=== PATIENT | male | born 1995 | race Caucasian/White ===

== ENCOUNTER 2020-06-02 10:34 | Outpatient (REF) | payer MEDICARE, MEDICAID, SELFPAY | END 2020-06-02 10:35 | disposition home or self-care (01) | LOC: HO.LAB 10:34 | PROVIDERS: Visit Provider Internal Medicine | DX: Z20.822 Contact with and (suspected) exposure to COVID-19 (principal) | CPT/HCPCS: 36415; C9803; U0003; U0005 ==

== ENCOUNTER 2021-12-19 10:10 | Emergency (ER) | payer MEDICARE, MEDICAID, SELFPAY ==
[2021-12-19 11:10] VITALS: BP 133/83; PULSE 80; RESP 13; TEMP 36.6; O2SAT 97; BMI 26.4
[2021-12-19 11:19] LABS: COVID-19 Test Negative (Negative); IDNOW Serial# 16C4AD1C
--- NOTE | 2021-12-19 12:18 | ED_ITS ---
HPI - Ear Problem General Chief complaint: Ear Problems Stated complaint: r ear lobe swollen wants covid test Time Seen by Provider: 12/19/21 11:59 Source: patient Mode of arrival: ambulatory Limitations: no limitations History of Present Illness HPI Narrative: 26-year-old male presenting to the ER with 2 separate complaints. Reports that he wants to COVID test due to he was exposed to COVID. He reports that his roommate tested positive for COVID over the past few days. He denies any symptoms related to this. He also reports right ear lobe pain/swelling/redness over the past few days worse today. Denies any other symptoms complaints or concerns at this time. MD Complaint: other (Right earlobe pain and COVID exposure) Duration: constant Severity: mild Relieving factors: nothing Exacerbating factors: palpation Discharge from ear: no Treatment prior to arrival: none Related Data Previous Rx's Medication Instructions Recorded cephalexin 500 mg capsule 500 mg PO Q6H 7 days #28 caps 12/19/21 doxycycline monohydrate 100 mg 100 mg PO BID 7 days #14 tabs 12/19/21 tablet Allergies Allergy/AdvReac Type Severity Reaction Status Date / Time ibuprofen [From MOTRIN] Allergy Mild ANGIOEDEMA Verified 12/19/21 11:09 Penicillins [PENICILLINS] Allergy Unknown FEVER/RASH Verified 12/19/21 11:09 Review of Systems Review of Systems: Constitutional : No Weight loss, No Fever, No Chills, No Night Sweats, No Fatigue, No Malaise ENT/Mouth : +right ear lobe pain/swelling/redness, No Hearing loss, No Nasal Congestion, No Sinus Pain, No Hoarseness, No sore throat, No Rhinorrhea, No Swallowing Difficulty Eyes: No Eye Pain, No Swelling, No Redness, No Foreign Body, No Discharge, No Vision Changes Cardiovascular : No Chest Pain, No SOB, No Dyspnea on Exertion, No Orthopnea, No Edema, No Palpitations Respiratory : No Cough, No Sputum, No Wheezing, No Smoke Exposure, No Dyspnea Gastrointestinal : No Nausea, No Vomiting, No Diarrhea, No Constipation, No abdominal Pain, No Hematochezia, No Melena Genitourinary : no irregular bleeding, No Dysuria, No Urinary Frequency, No Hematuria, No Urinary Incontinence, No Urgency, No Flank Pain, No Urinary Flow Changes, No Hesitancy Musculoskeletal : No joint pain, No Myalgias, No Joint Swelling Skin : No Skin Lesions, No rash Neuro : No Weakness, No Numbness, No Paresthesias, No Loss of Consciousness, No Dizziness, No Headache Psych : No Anxiety/Panic, No Depression, No SI/HI/AH/VH, No Social Issues, Heme/Lymph: No Bruising, No Bleeding,No Lymphadenopathy Endocrine : No Polyuria, No Polydipsia, No Temperature Intolerance Yes all other systems are reviewed and are negative [facility] Past Medical History Attestation statement: The following information was validated with the patient. Source: old records reviewed and nursing notes reviewed Social History Social History Advance Directives: No Physical Exam Vital Signs: Vital Signs: Last Vital Signs Temp 98 F 12/19/21 11:10 Pulse 80 12/19/21 11:10 Resp 13 12/19/21 11:10 BP 133/83 12/19/21 11:10 Pulse Ox 97 12/19/21 11:10 O2 Del Method 12/19/21 11:10 BMI result Body Mass Index 26.4 vital signs have been reviewed as normal and appeared to be correct. Blood pressure normal. Heart rate normal. Respiration rate normal. Temperature normal. Oxygen saturation normal. Appearance: Alert. Oriented X3. No acute distress. Head: Normal external exam. Normocephalic. Atraumatic. Eyes: PERRLA. EOMI. Conjunctiva and sclera normal. Eyelids normal. ENT: EAC normal. TM's Normal. To the right ear lobe patient has small fluctuant abscess with mild surrounding erythema/tenderness to palpation and warm to touch. No streaking/foreign bodies or purulent drainage noted at this time. Not consistent with mastoiditis. Pharynx normal. Uvula midline. Moist mucous membranes. No lesions/ulcerations or masses noted on the tongue. Normal voice. No trismus noted. No drooling noted. No muffled voice noted. Neck: Normal inspection. Neck supple. FROM. No adenopathy. Thyroid Normal. No tracheal deviation noted. No crepitus is noted. No meningeal signs. No neck mass noted. No signs of trauma noted. CVS: Normal heart rate and rhythm. Heart sound normal. Pulses normal throughout. No murmurs/rales/gallops. Respiratory: No respiratory distress. Painless inspiration. Breath sounds normal. No wheezes/rales/rhonchi noted. Chest nontender. No crepitus is noted. No accessory muscle usage noted or decreased air movement noted. No signs of trauma. Abdomen: Soft and nontender. Nondistended. No guarding. No rigidity. Bowel sounds normal in all 4 quadrants. No distention noted. No organomegaly noted. No visible injury noted. Back: Full range of motion noted. Nontender. Skin: Skin warm and dry. Normal skin color. Normal skin turgor. No rashes/lesions/lacerations noted. Extremities: Extremities exhibit normal range of motion and nontender. Neuro: Oriented X 3. No motor deficit. No sensory deficit. Reflexes normal. Normal steady gait. No focal neuro deficits noted. CN's II-XII intact bilaterally? Vascular: + radial pulses/+ 2 distal pedal pulses/+2 dorsalis pedis b/l. Normal cap refill. No cyanosis noted to upper extremity nails and lower extremity toes nails. Course Course Course Narrative: Patient negative for COVID. Although I explained to Ms. Armijo around his roommate and he is not having any symptoms and may be too early to test him at this time. Therefore explained to him that he should self isolate per CDC guidelines. I also explained to the patient that he should have repeat testing in 3-5 days if he does develop any symptoms. He is now status post I&D of abscess. Patient tolerated procedure well. No complications. Will DC home with antibiotics and symptomatic treatment instructions return if any new or worsening symptoms follow up with primary care provider. Patient understands agrees with this plan. Procedures Abscess I/D Side (if applicable): right Technique: other (Manual expression) Sent for culture/gram staining?: No Irrigation: Yes Packing used?: none Complications: other (None) MDM - Ear Medical Records Attestation: I reviewed the patient's medical records. Lab Data Attestation: I reviewed the patient's lab results. Labs: Lab Results 12/19/21 Range/Units 10:59 COVID-19 (JENY) Negative (Negative) COVID-19 Clin Com See Note Discharge Plan Discharge Clinical Impression: Abscess of right earlobe, Close exposure to 2019-nCoV Patient Disposition: Home, Self-Care Instructions: Incision and Drainage (ED), COVID-19 (Coronavirus Disease 2019) (ED) Prescriptions: New cephalexin 500 mg capsule 500 mg PO Q6H 7 Days Qty: 28 0RF doxycycline monohydrate 100 mg tablet 100 mg PO BID 7 Days Qty: 14 0RF Referrals: Name,MD Gus [Primary Care Provider] - 2 days
== END 2021-12-19 12:36 | disposition home or self-care (01) ==
PROVIDERS: Emergency Provider Emergency Medicine; PCP Internal Medicine Geriatric Medicine
DX: H60.01 Abscess of right external ear (principal); H92.01 Otalgia, right ear; Z20.822 Contact with and (suspected) exposure to COVID-19
CPT/HCPCS: 87635; 99283

== ENCOUNTER 2022-07-14 10:59 | Emergency (ER) | payer MEDICAID, SELFPAY ==
--- NOTE | 2022-07-14 | ECG_ITS ---
Test Reason : chest pain Blood Pressure : / mmHG Vent. Rate : 087 BPM Atrial Rate : 087 BPM P-R Int : 128 ms QRS Dur : 096 ms QT Int : 358 ms P-R-T Axes : 041 085 048 degrees QTc Int : 430 ms Normal sinus rhythm with sinus arrhythmia Normal ECG When compared with ECG of 24-JAN-2011 22:30, Vent. rate has increased BY 29 BPM Referred By: Generic ED Physician Electronically Signed By:ELÍAS HERNANDEZ
--- NOTE | ~2022-07-14 | XR_ITS ---
EXAMINATION: XR CHEST CLINICAL INFORMATION: Shortness of breath. Chest pain. COMPARISON: 04/04/2016. TECHNIQUE: Frontal view of the chest was obtained. FINDINGS: No significant abnormality is noted involving the heart, lungs, mediastinum, bony thorax or soft tissues. XR/XR chest 1V IMPRESSION: Unremarkable examination.
--- NOTE | ~2022-07-14 | US_ITS ---
EXAMINATION: US ABDOMEN COMPLETE CLINICAL INFORMATION: Pain. COMPARISON: None available. TECHNIQUE: Real-time imaging of the abdominal viscera. FINDINGS: PANCREAS: Obscured by bowel gas ABDOMINAL AORTA: Proximal aorta is not well seen. Remainder the aorta is of normal caliber. INFERIOR VENA CAVA: Visualized portions are normal. LIVER: Normal. The liver is normal in size. The liver contour is normal. Parenchymal echogenicity is normal. No focal hepatic lesion. There is no intrahepatic biliary duct dilatation seen. GALLBLADDER: There is adenomyomatosis in the fundus. The gallbladder is physiologically distended without evidence of stones, sludge, polyps, wall thickening or pericholecystic fluid. COMMON BILE DUCT: Normal in caliber measuring 0.4 cm in diameter. RIGHT KIDNEY: Normal. No hydronephrosis. No renal calculi or focal parenchymal lesions. The kidney measures 10 cm in maximum dimension. LEFT KIDNEY: Normal. No hydronephrosis. No renal calculi or focal parenchymal lesions. The kidney measures 10 cm in maximum dimension. SPLEEN: Normal. The spleen measures 10 cm in maximum dimension. FREE FLUID: None. US/US abdomen complete IMPRESSION: 1. Focal adenomyomatosis in the gallbladder fundus. No gallstones. No findings to suggest acute cholecystitis. 2. Pancreas obscured by bowel gas.
[2022-07-14 11:04] VITALS: BP 146/89; PULSE 88; RESP 18; TEMP 36.8; O2SAT 94; BMI 26.4
[2022-07-14 11:28] LABS: MANUAL DIFF FLAG NO
[2022-07-14 11:30] LABS: Basophils Absolute Auto 0.1 X10*3/uL (0.0-0.2); Basophils Percent Auto 0.9 % (0-2); Eosinophils Absolute Auto 0.6 X10*3/uL (0.0-0.4); Eosinophils Percent Auto 7.1 % (0-4); Hemoglobin 16.6 g/dl (14.0-18.0); Imm Gran Abs Auto 0.02 X10*3/uL (0.00-0.03); Imm Gran Pct Auto 0.2 % (0.0-0.4); Lymphocytes Absolute Auto 2.1 X10*3/uL (1.2-4.9); Lymphocytes Percent Auto 24.7 % (20-40); Mean Corpuscular HGB Conc 33.9 g/dl (31.0-36.0); Mean Corpuscular Hemoglobin 30.3 pg (27.0-33.0); Mean Corpuscular Volume 89.4 fL (80.0-98.0); Monocytes Absolute Auto 1.2 X10*3/uL (0.1-1.2); Monocytes Percent Auto 13.9 % (2-11); Neutrophils Absolute Auto 4.6 x10*3/uL (2.0-8.3); Neutrophils Percent Auto 53.2 % (45-73); Platelet Count 234 X10*3/uL (160-400); Red Blood Count 5.48 X10*6/uL (4.60-5.80); Red Cell Distribution Width 13.6 % (11.0-16.0); White Blood Count 8.6 X10*3/uL (4.8-10.8)
[2022-07-14 11:50] LABS: Alanine Aminotransferase 39 U/L (0-40); Albumin Level 4.4 g/dL (3.5-5.0); Alkaline Phosphatase 60 U/L (39-117); Anion Gap 14 (12-20); Aspartate Amino Transferase 33 U/L (5-37); Bilirubin Direct 0.3 mg/dL (0.0-0.5); Bilirubin Total 0.9 mg/dL (0.0-1.0); Blood Urea Nitrogen 13 mg/dL (9-16); Calcium 9.1 mg/dL (8.4-10.2); Carbon Dioxide 25 mmol/L (22-29); Chloride 106 mmol/L (96-108); Creatinine Clr Calc Pharmacy 104.4; Estimated Glomerular Filt Rate > 60; Glucose Random 105 mg/dL (60-115); Lipase 21 U/L (8-78); Magnesium 2.1 mg/dL (1.6-2.6); Potassium 3.7 mmol/L (3.3-5.1); Sodium 141 mmol/L (135-145); Total Protein 6.7 g/dL (6.5-8.0)
[2022-07-14 12:00] LABS: Troponin-I High Sensitivity < 2.7 ng/L (<3.5-35.0)
[2022-07-14 12:10] LABS: Influenza A PCR NEGATIVE (Negative); Influenza B PCR NEGATIVE (Negative); Resp Syncy Virus RNA Qual PCR NEGATIVE (Negative); SARS COV2 PCR INHOUSE NEGATIVE (Negative)
--- NOTE | 2022-07-14 14:05 | ED.GENADULT ---
HPI - General Adult General Chief complaint: General Medical Stated complaint: chest pain Time Seen by Provider: 07/14/22 13:47 Source: patient Mode of arrival: ambulatory Limitations: no limitations History of Present Illness HPI narrative: 27-year-old male with a history of asthma presents to the ER with complaints of 3 days of cough with green phlegm, chest discomfort with coughing, upper abdominal pain, runny nose. Patient reports initially he had a fever but this is now resolved. He denies any difficulty breathing, leg swelling or leg pain, headache, neck pain or neck stiffness, vomiting, diarrhea, urinary symptoms. He has had uses inhaler intermittently and this is helping with his symptoms. No sick contact. No recent travel. No recent surgeries. No history of DVT or PE. No sedentary lifestyle. Related Data Previous Rx's Medication Instructions Recorded cephalexin 500 mg capsule 500 mg PO Q6H 7 days #28 caps 12/19/21 doxycycline monohydrate 100 mg 100 mg PO BID 7 days #14 tabs 12/19/21 tablet Allergies Allergy/AdvReac Type Severity Reaction Status Date / Time ibuprofen [From MOTRIN] Allergy Mild ANGIOEDEMA Verified 07/14/22 11:06 Penicillins [PENICILLINS] Allergy Unknown FEVER/RASH Verified 07/14/22 11:06 Review of Systems Review of Systems: Yes all other systems are reviewed and are negative Constitutional: Constitutional: Reports no additional constitutional complaints, Denies body ache(s), Denies chills, Reports fever(s), Denies headache(s) and Denies weakness Eyes: Eyes: Reports no additional eye complaints and Denies change in vision ENT: Reports system reviewed and no additional complaints, except as documented, Denies dizziness, Denies headache(s), Denies nasal congestion, Reports nasal discharge and Denies neck pain Cardiovascular: Cardiovascular: Reports no additional cardiovascular complaints, Reports chest pain, Denies leg edema and Denies dyspnea Respiratory: Respiratory: Reports no additional respiratory complaints, Reports cough and Denies dyspnea Gastrointestinal: Gastrointestinal: Reports no additional gastrointestinal complaints, Reports abdominal pain, Denies diarrhea, Denies nausea and Denies vomiting Genitourinary: Genitourinary: Denies urinary incontinence Musculoskeletal: Musculoskeletal: Reports no additional musculoskeletal complaints, Denies back pain, Denies arthralgias, Denies joint swelling, Denies neck pain, Denies numbness and Denies tingling Integumentary/Breasts: Skin/Breast: Reports system reviewed and no additional complaints, except as docu and Denies rash Neurologic: Reports system reviewed and no additional complaints, except as documented, Denies dizziness, Denies headache(s), Denies numbness, Denies tingling and Denies weakness PMFSH Past Medical History Attestation statement: The following information was validated with the patient. Source: old records reviewed and nursing notes reviewed Social History Social History Alcohol intake: never Smoked in Last 30 Days: Yes Use of substances other than those prescribed or required for medical reasons: Yes Substance Use Type: Marijuana Advance Directives: No Advance Directives Information Provided: Yes Physical Exam ED Vital Signs: Vital Signs - 24 hr 07/14/22 11:04 07/14/22 14:27 Temperature 98.3 F Pulse Rate 88 88 Respiratory Rate 18 16 Blood Pressure 146/89 H 114/81 Pulse Oximetry 94 96 Oxygen Delivery Method Room Air Room Air BMI result Body Mass Index 26.4 Const General: cooperative, healthy appearing, comfortable and no acute distress Orientation/consciousness: patient oriented x3 Limitations: no limitations HENMT Head: Yes normal to inspection Ears: hearing grossly normal bilaterally Eyes General: appearance normal, both eyes and all related structures Pupils: Equal, round and reactive pupils present Neck Neck: Yes normal visual inspection Chest Chest palpation & inspection: normal inspection of the chest Resp Effort & Inspection: normal respiratory effort Auscultation: clear to auscultation bilaterally Cardio Rate: regular rate Rhythm: regular rhythm Peripheral pulses: Peripheral pulses 2+ throughout GI Inspection: Yes normal to inspection Palpation (GI): Soft to palpation and nontender Auscultation: normal bowel sounds General: Yes no CVA tenderness Back/Spine/Pelvis Back: no CVA tenderness Thoracic/Lumbar Spine: thoracic and lumbar spine normal to inspection Skin General skin exam: no rashes or lesions noted Neuro General: patient oriented x3 and moves all extremities Cranial nerves: Yes Equal, round and reactive pupils present Cognition (Neuro): normal cognition Gait exam (Neuro): Normal gait present Extrem General: Yes normal to inspection, Yes no pedal edema and Yes no calf tenderness Course Course Course Narrative: Labs are unremarkable. Imaging shows no acute finding. EKG is nonischemic. Likely viral bronchitis. Reviewed worrisome signs and symptoms of when to return to the emergency room. Comfortable plan for discharge home Medical Decision Making Medical Decision Making [facility] [place] Narrative: 27-year-old male with a history of asthma here with complaints of 3 days of productive cough with green sputum, upper abdominal pain, chest discomfort with coughing, congestion. On arrival lungs are clear. Vitals are stable. Patient has labs, EKG, chest x-ray, viral testing and ultrasound ordered from triage Differential Diagnosis Differential Diagnoses: The differential diagnosis associated with the presentation includes Perc score 0 Low concern for ACS with atypical symptoms with negative troponin EKG Low concern for acute abdominal pathology with no focal tenderness Lab Data [facility] [place] Lab Attestation statement: I reviewed the patient's lab results. 07/14/22 11:21 07/14/22 11:23 Labs: Lab Results 07/14/22 07/14/22 07/14/22 Range/Units 11:21 11:21 11:23 WBC 8.6 (4.8-10.8) X10*3/uL RBC 5.48 (4.60-5.80) X10*6/uL Hgb 16.6 (14.0-18.0) g/dl Hct 49.0 (42.0-52.0) % MCV 89.4 (80.0-98.0) fL MCH 30.3 (27.0-33.0) pg MCHC 33.9 (31.0-36.0) g/dl RDW 13.6 (11.0-16.0) % Plt Count 234 (160-400) X10*3/uL MPV 11.0 (9.4-12.4) fL Immature Gran % (Auto) 0.2 (0.0-0.4) % Neut % (Auto) 53.2 (45-73) % Lymph % (Auto) 24.7 (20-40) % [place] % (Auto) 13.9 H (2-11) % Eos % (Auto) 7.1 H (0-4) % Baso % (Auto) 0.9 (0-2) % Lymph # (Auto) 2.1 (1.2-4.9) X10*3/uL [place] # (Auto) 1.2 (0.1-1.2) X10*3/uL Eos # (Auto) 0.6 H (0.0-0.4) X10*3/uL Baso # (Auto) 0.1 (0.0-0.2) X10*3/uL Abs Immat Gran (auto) 0.02 (0.00-0.03) X10*3/uL Absolute Neuts (auto) 4.6 (2.0-8.3) x10*3/uL Absolute Nucleated RBC 0.000 (0.0-0.012) X10*3/uL Nucleated RBC % (auto) 0.0 (0.0-0.2) /100WBC Sodium 141 (135-145) mmol/L Potassium 3.7 (3.3-5.1) mmol/L Chloride 106 (96-108) mmol/L Carbon Dioxide 25 (22-29) mmol/L Anion Gap 14 (12-20) BUN 13 (9-16) mg/dL Creatinine 1.19 (0.5-1.4) mg/dL Estim Creat Clear Calc 104.4 Estimated GFR > 60 Random Glucose 105 (60-115) mg/dL Calcium 9.1 (8.4-10.2) mg/dL Magnesium 2.1 (1.6-2.6) mg/dL Total Bilirubin 0.9 (0.0-1.0) mg/dL Direct Bilirubin 0.3 (0.0-0.5) mg/dL AST 33 (5-37) U/L ALT 39 (0-40) U/L Alkaline Phosphatase 60 (39-117) U/L Troponin I High Sens < 2.7 (<3.5-35.0) ng/L Total Protein 6.7 (6.5-8.0) g/dL Albumin 4.4 (3.5-5.0) g/dL Lipase 21 (8-78) U/L Influenza Type A (PCR) (Negative) Influenza Type B (PCR) (Negative) RSV RNA Qual (PCR) (Negative) SARS-CoV-2 RNA (RT-PCR) (Negative) 07/14/22 Range/Units 11:23 WBC (4.8-10.8) X10*3/uL RBC (4.60-5.80) X10*6/uL Hgb (14.0-18.0) g/dl Hct (42.0-52.0) % MCV (80.0-98.0) fL MCH (27.0-33.0) pg MCHC (31.0-36.0) g/dl RDW (11.0-16.0) % Plt Count (160-400) X10*3/uL MPV (9.4-12.4) fL Immature Gran % (Auto) (0.0-0.4) % Neut % (Auto) (45-73) % Lymph % (Auto) (20-40) % [place] % (Auto) (2-11) % Eos % (Auto) (0-4) % Baso % (Auto) (0-2) % Lymph # (Auto) (1.2-4.9) X10*3/uL [place] # (Auto) (0.1-1.2) X10*3/uL Eos # (Auto) (0.0-0.4) X10*3/uL Baso # (Auto) (0.0-0.2) X10*3/uL Abs Immat Gran (auto) (0.00-0.03) X10*3/uL Absolute Neuts (auto) (2.0-8.3) x10*3/uL Absolute Nucleated RBC (0.0-0.012) X10*3/uL Nucleated RBC % (auto) (0.0-0.2) /100WBC Sodium (135-145) mmol/L Potassium (3.3-5.1) mmol/L Chloride (96-108) mmol/L Carbon Dioxide (22-29) mmol/L Anion Gap (12-20) BUN (9-16) mg/dL Creatinine (0.5-1.4) mg/dL Estim Creat Clear Calc Estimated GFR Random Glucose (60-115) mg/dL Calcium (8.4-10.2) mg/dL Magnesium (1.6-2.6) mg/dL Total Bilirubin (0.0-1.0) mg/dL Direct Bilirubin (0.0-0.5) mg/dL AST (5-37) U/L ALT (0-40) U/L Alkaline Phosphatase (39-117) U/L Troponin I High Sens (<3.5-35.0) ng/L Total Protein (6.5-8.0) g/dL Albumin (3.5-5.0) g/dL Lipase (8-78) U/L Influenza Type A (PCR) NEGATIVE (Negative) Influenza Type B (PCR) NEGATIVE (Negative) RSV RNA Qual (PCR) NEGATIVE (Negative) SARS-CoV-2 RNA (RT-PCR) NEGATIVE (Negative) Independent Interpretation I performed an independent interpretation of an: EKG, Plain X-Ray and Ultrasound Interpretation: I indepedentely the chest x-ray and the abdominal ultrasound and agree with the radiologist's report I independetely reviewed the EKG which shows normal sinus rhythm with a rate 87, normal VT, normal QRS, normal QT Radiology Impression Discussion of test interpretation with radiology: I have reviewed the radiologist's reading. Radiologist Impression: ?[address] [address] XRay Report Signed Patient: Sandeep Loyd MR#: [id number] : 1995 Acct:[id number] Age/Sex: 27 / M ADM Date: 07/14/22 Loc: .ED Attending Dr: Ordering Physician: Generic ED Physician Date of Service: 07/14/22 Procedure(s): XR chest 1V Accession Number(s): [id number] cc: Generic ED Physician~ EXAMINATION: XR CHEST CLINICAL INFORMATION: Shortness of breath. Chest pain. COMPARISON: 04/04/2016. TECHNIQUE: Frontal view of the chest was obtained. FINDINGS: No significant abnormality is noted involving the heart, lungs, mediastinum, bony thorax or soft tissues. XR/XR chest 1V IMPRESSION: Unremarkable examination. ? [address] [address] Ultrasound Report Signed Patient: Sandeep Loyd MR#: [id number] : 1995 Acct:[id number] Age/Sex: 27 / M ADM Date: 07/14/22 Loc: .ED Attending Dr: Ordering Physician: Erika Velez Date of Service: 07/14/22 Procedure(s): US abdomen complete Accession Number(s): [id number] cc: Erika Velez~ EXAMINATION: US ABDOMEN COMPLETE CLINICAL INFORMATION: Pain. COMPARISON: None available. TECHNIQUE: Real-time imaging of the abdominal viscera. FINDINGS: PANCREAS: Obscured by bowel gas ABDOMINAL AORTA: Proximal aorta is not well seen. Remainder the aorta is of normal caliber. INFERIOR VENA CAVA: Visualized portions are normal. LIVER: Normal. The liver is normal in size. The liver contour is normal. Parenchymal echogenicity is normal. No focal hepatic lesion. There is no intrahepatic biliary duct dilatation seen. GALLBLADDER: There is adenomyomatosis in the fundus. The gallbladder is physiologically distended without evidence of stones, sludge, polyps, wall thickening or pericholecystic fluid. COMMON BILE DUCT: Normal in caliber measuring 0.4 cm in diameter. RIGHT KIDNEY: Normal. No hydronephrosis. No renal calculi or focal parenchymal lesions. The kidney measures 10 cm in maximum dimension. LEFT KIDNEY: Normal. No hydronephrosis. No renal calculi or focal parenchymal lesions. The kidney measures 10 cm in maximum dimension. SPLEEN: Normal. The spleen measures 10 cm in maximum dimension. FREE FLUID: None. US/US abdomen complete IMPRESSION: 1. Focal adenomyomatosis in the gallbladder fundus. No gallstones. No findings to suggest acute cholecystitis. ? 2. Pancreas obscured by bowel gas. Discharge Plan Discharge Clinical Impression: Acute bronchitis, viral Patient Disposition: Home, Self-Care Instructions: Acute Bronchitis (ED) Additional Instructions: Your COVID test is negative. Your x-ray, lab work and EKG are all normal. You likely have a virus Use your inhaler 2 puffs every 4 hours as needed for cough or wheezing Take Tylenol for pain as needed. Return for any worsening symptoms Prescriptions: No Action cephalexin 500 mg capsule 500 mg PO Q6H 7 Days Qty: 28 0RF doxycycline monohydrate 100 mg tablet 100 mg PO BID 7 Days Qty: 14 0RF Referrals: Name,MD Gus [Primary Care Provider] - 1 week Interventions: ED Discharge Assessment Last Done: 07/14/22 14:31 Discharge Date/Time: 07/14/22 14:32
[2022-07-14 14:27] VITALS: BP 114/81; PULSE 88; RESP 16; O2SAT 96
== END 2022-07-14 14:32 | disposition home or self-care (01) ==
PROVIDERS: Physician Assistant Medical; Emergency Provider Emergency Medicine; PCP Internal Medicine Geriatric Medicine
DX: J20.8 Acute bronchitis due to other specified organisms (principal); R07.89 Other chest pain; R05.9 Cough, unspecified; R10.9 Unspecified abdominal pain; R06.02 Shortness of breath; Z20.822 Contact with and (suspected) exposure to COVID-19; Z20.828 Contact with and (suspected) exposure to other viral communicable diseases; Z79.899 Other long term (current) drug therapy
CPT/HCPCS: 0241U; 36415; 71045; 76700; 80053; 80076; 82248; 83690; 83735; 84484; 85025; 93005; 99284

== ENCOUNTER 2022-10-06 | Emergency (ER) | payer OTHER, SELFPAY ==
[2022-10-06 00:11] VITALS: BP 147/93; PULSE 77; RESP 18; TEMP 37.2; O2SAT 95; BMI 26.4
--- NOTE | 2022-10-06 00:15 | PC.NURSE ---
c/o abscess needing to be drained upper L mouth
--- NOTE | 2022-10-06 00:52 | ED.DENTAL ---
HPI - Dental/Oral General Chief complaint: Dental/Oral Stated complaint: Mouth pain Time Seen by Provider: 10/06/22 00:23 Source: patient Mode of arrival: ambulatory Limitations: no limitations History of Present Illness HPI Narrative: Patient with history of dental abscess mom comes here for increased swelling of the right face with upper premolar pain no fever no chills Related Data Previous Rx's Medication Instructions Recorded cephalexin 500 mg capsule 500 mg PO Q6H 7 days #28 caps 12/19/21 doxycycline monohydrate 100 mg 100 mg PO BID 7 days #14 tabs 12/19/21 tablet clindamycin HCl 300 mg capsule 300 mg PO TID #30 caps 10/06/22 oxycodone 5 mg tablet 5 mg PO Q6H PRN pain #20 tabs 10/06/22 Allergies Allergy/AdvReac Type Severity Reaction Status Date / Time ibuprofen [From MOTRIN] Allergy Mild ANGIOEDEMA Verified 10/06/22 00:14 Penicillins [PENICILLINS] Allergy Unknown FEVER/RASH Verified 10/06/22 00:14 Review of Systems Review of Systems: Yes all other systems are reviewed and are negative [facility] Social History Social History Alcohol intake: never Substance Use Type: Marijuana Advance Directives: No Advance Directives Information Provided: Yes Physical Exam Vital Signs: Vital Signs: Last Vital Signs Temp 99 F 10/06/22 00:11 Pulse 77 10/06/22 00:11 Resp 18 10/06/22 00:11 BP 147/93 H 10/06/22 00:11 Pulse Ox 95 10/06/22 00:11 O2 Del Method Room Air 10/06/22 00:11 BMI result Body Mass Index 26.4 HEENT: Teeth image: 1. Abscess at the base of tooth 6. Broken tooth Medications Administered Discontinued Medications Generic Name Dose Route Start Last Admin Trade Name Freq PRN Reason Stop Dose Admin Clindamycin HCl 300 mg 10/06/22 00:34 10/06/22 00:52 Clindamycin Hcl 300 Mg Capsule PO 10/06/22 00:35 300 mg ONCE ONE Administration Lidocaine HCl 2 ml 10/06/22 00:33 10/06/22 00:52 Lidocaine Hcl 1 % Mpf 2 Ml Vial INFILTRATI 10/06/22 00:34 2 ml ONCE ONE Administration Oxycodone HCl 10 mg 10/06/22 00:33 10/06/22 00:52 Oxycodone Hcl Immed Release 5 Mg Tablet PO 10/06/22 00:34 10 mg ONCE ONE Administration Medical Decision Making Medical Decision Making [facility] Narrative: Patient dental abscess needle aspiration was done under local anesthesia and about 1-1/2 cc pus was drained patient felt much better after the procedure discharged home on clindamycin advised to follow-up with dentist Discharge Plan Discharge Clinical Impression: Dental abscess Patient Disposition: Home, Self-Care Instructions: Dental Abscess (ED) Additional Instructions: Take antibiotic as prescribed and follow-up with dentist Prescriptions: New clindamycin HCl 300 mg capsule 300 mg PO TID Qty: 30 0RF oxycodone 5 mg tablet 5 mg PO Q6H PRN (Reason: pain) Qty: 20 0RF Rx Instructions: Partial Fill upon patient request. No Action cephalexin 500 mg capsule 500 mg PO Q6H 7 Days Qty: 28 0RF doxycycline monohydrate 100 mg tablet 100 mg PO BID 7 Days Qty: 14 0RF Interventions: ED Discharge Assessment Last Done: 10/06/22 01:05
[2022-10-06 00:57] VITALS: BP 140/87; PULSE 71; RESP 19; TEMP 32.1; O2SAT 96
--- NOTE | 2022-10-06 01:04 | PC.NURSE ---
Discharge instructions given and explained to pt Ambulates safely/independently No apparent distress aox4 all of pt's questions answered
== END 2022-10-06 01:05 | disposition home or self-care (01) ==
PROVIDERS: Emergency Provider Internal Medicine
DX: K04.7 Periapical abscess without sinus (principal); Z79.899 Other long term (current) drug therapy
CPT/HCPCS: 41800; 99284

== ENCOUNTER 2023-05-15 08:44 | Emergency (ER) | payer OTHER, SELFPAY ==
[2023-05-15 08:52] VITALS: BP 127/74; PULSE 95; RESP 19; TEMP 36.6; O2SAT 98; BMI 27.1
--- NOTE | 2023-05-15 09:10 | ED_ITS ---
HPI - Back Pain/Injury General Chief Complaint: Back Pain/Injury Stated Complaint: Lower back pain Time Seen by Provider: 05/15/23 09:03 Source: patient, RN notes reviewed and old records reviewed Mode of arrival: ambulatory History of Present Illness HPI Narrative: 27-year-old male with a past medical history of chronic back pain presenting to the ED complaining of acute on chronic low back pain times months. Denies recent injury/trauma or fall. Has been taking Tylenol without relief. Reports pain worse with bending and lifting. Denies numbness, tingling, weakness, incontinence/retention, fever, abdominal pain Related Data Previous Rx's Medication Instructions Recorded cephalexin 500 mg capsule 500 mg PO Q6H 7 days #28 caps 12/19/21 doxycycline monohydrate 100 mg 100 mg PO BID 7 days #14 tabs 12/19/21 tablet clindamycin HCl 300 mg capsule 300 mg PO TID #30 caps 10/06/22 oxycodone 5 mg tablet 5 mg PO Q6H PRN pain #20 tabs 10/06/22 acetaminophen 500 mg tablet 500 mg PO Q6H PRN fever or pain 05/15/23 (Tylenol Extra Strength) #14 tabs cyclobenzaprine 5 mg tablet 5 mg PO Q8H PRN pain (scale score 05/15/23 7-10) 5 days #14 tabs lidocaine 5 % topical patch 1 patch topical DAILY PRN pain #30 05/15/23 (Lidoderm) ea Allergies Allergy/AdvReac Type Severity Reaction Status Date / Time ibuprofen [From MOTRIN] Allergy Mild ANGIOEDEMA Verified 10/06/22 00:14 Penicillins [PENICILLINS] Allergy Unknown FEVER/RASH Verified 10/06/22 00:14 aspirin Allergy Swelling Verified 05/15/23 08:52 Review of Systems Review of Systems: Constitutional: No Fever, No Chills ENT/Mouth: No Ear Pain, No Nasal Congestion, No sore throat, No Rhinorrhea, No Swallowing Difficulty Cardiovascular: No Chest Pain, No SOB Respiratory: No Cough Gastrointestinal: No Nausea, No Vomiting, No Abdominal pain Genitourinary: No Dysuria, No Hematuria, No Urinary Incontinence/retention, No Urgency, No Flank Pain Musculoskeletal: + joint pain, No Myalgias, No Joint Swelling Skin: No Skin Lesions, No rash Neuro: No Weakness, No Numbness, No Paresthesias Yes all other systems are reviewed and are negative Constitutional: Constitutional: Reports as per [facility] Past Medical History Attestation statement: The following information was validated with the patient. Source: old records reviewed Social History Social History Alcohol intake: unknown Substance Use Type: Marijuana Advance Directives: No Physical Exam Vital Signs: Vital Signs: Last Vital Signs Temp 98 F 05/15/23 08:52 Pulse 95 05/15/23 08:52 Resp 19 05/15/23 08:52 BP 127/74 05/15/23 08:52 Pulse Ox 98 05/15/23 08:52 O2 Del Method Room Air 05/15/23 08:52 BMI result Body Mass Index 27.1 Const: General: cooperative, healthy appearing and no acute distress Orientation/consciousness: patient oriented x3 Limitations: no limitations HEENT: Head: Yes normal to inspection and Yes atraumatic Ears: hearing grossly normal bilaterally General nose exam: Normal external nose present Face and sinus: Yes normal facial exam Eyes: General: appearance normal, both eyes and all related structures EOM: EOMs intact bilaterally Neck: Neck: Yes normal visual inspection and Yes no meningeal signs Resp: Effort & Inspection: normal respiratory effort and no respiratory distress Auscultation: clear to auscultation bilaterally Cardio: Rate: regular rate Heart sounds: S1 normal heart sound present and S2 normal heart sound present GI: Inspection: Yes normal to inspection Palpation (GI): Soft to palpation, nontender, no guarding and not rigid : General: Yes no CVA tenderness Back/Spine/Pelvis: Other: No midline cervical/thoracic/lumbar spinous tenderness/step-off or deformity. + bilateral paraspinal lumbar tenderness to palpation reproducing subjective complaint. No erythema/ecchymosis or rash Back: no CVA tenderness Skin: Rashes: no rashes Wounds: no wounds Neuro: Other: Strength intact throughout. No saddle anesthesia. Sensation intact to light touch. Neurovascular intact distally General: patient oriented x3, gait normal, tone normal, moves all extremities, no meningeal signs and no focal motor deficits Cranial nerves: Yes CN's II-XII intact bilaterally Gait exam (Neuro): Normal gait present Extrem: General: Yes normal to inspection Medications Administered Discontinued Medications Generic Name Dose Route Start Last Admin Trade Name Freq PRN Reason Stop Dose Admin Cyclobenzaprine HCl 10 mg 05/15/23 09:26 05/15/23 09:49 Cyclobenzaprine Hcl 10 Mg Tablet PO 05/15/23 09:27 10 mg ONCE ONE Administration Lidocaine 1 patch 05/15/23 09:26 05/15/23 09:49 Lidocaine 4 % Patch Adh..Patch TRANSDERMA 05/15/23 09:27 1 patch ONCE ONE Administration Protocol Medical Decision Making Medical Decision Making MDM Narrative: 27-year-old male with a past medical history of chronic back pain presenting to the ED complaining of acute on chronic low back pain times months. On exam vital signs stable, NAD, nontoxic appearing, physical exam as noted above. No midline spinous tenderness or red flag symptoms. Ambulating with steady gait. Concern for acute on chronic back pain vs herniated disc vs muscle strain/spasm. Low suspicion for pyelo, renal stone, cauda equina/cord compression or epidural abscess Plan: Pain control, spine follow-up Please refer to course for remaining clinical decision making, interpretation of labs/imaging results, and discussions with consultants and/or family members. Results discussed with patient including worrisome signs and symptoms and strict return precautions, and when to return to the emergency department. They verbalized understanding and feel safe for discharge at this time. Differential Diagnosis Differential Diagnoses: The differential diagnosis associated with the presentation includes As above External Record Review External record reviewed: Inpatient record, Office record, Outpatient record, Prior outpatient labs, Prior outpatient radiology, Primary care record and Outside ED record Tests considered The following testing was considered but not selected: As above Prescription Management I considered prescription management with: Pain Medication Discharge Plan Discharge Clinical Impression: Acute exacerbation of chronic low back pain Patient Disposition: Home, Self-Care Instructions: Back Pain (ED) Additional Instructions: Your pain is likely musculoskeletal Flexeril is a muscle relaxer, take at night as it makes you drowsy, do not drive, drink alcohol, or operate machinery while taking it Lidoderm patches are numbing patches, apply to painful area In addition take Tylenol at home If symptoms persist or worsen, pain becomes unbearable, you developed urinary retention or incontinence, or weakness return to the ED Prescriptions: New acetaminophen [Tylenol Extra Strength] 500 mg tablet 500 mg PO Q6H PRN (Reason: fever or pain) Qty: 14 0RF lidocaine [Lidoderm] 5 % adhesive patch,medicated 1 patch topical DAILY MDD remove after 12 hours PRN (Reason: pain) Qty: 30 0RF Rx Instructions: leave on most painful area for up to 12 hrs cyclobenzaprine 5 mg tablet 5 mg PO Q8H PRN (Reason: pain (scale score 7-10)) 5 Days Qty: 14 0RF No Action cephalexin 500 mg capsule 500 mg PO Q6H 7 Days Qty: 28 0RF doxycycline monohydrate 100 mg tablet 100 mg PO BID 7 Days Qty: 14 0RF clindamycin HCl 300 mg capsule 300 mg PO TID Qty: 30 0RF oxycodone 5 mg tablet 5 mg PO Q6H PRN (Reason: pain) Qty: 20 0RF Rx Instructions: Partial Fill upon patient request. Referrals: [facility] Pain Management [Provider Group] [facility] Thoracic Surgeons [Provider Group] Physician,None [Primary Care Provider] - Stand Alone Forms: Work/School Release Interventions: ED Discharge Assessment Last Done: 05/15/23 09:52 Discharge Date/Time: 05/15/23 09:53
[2023-05-15] MEDS: Lidocaine 4 % Patch ADH..PATCH 1 PATCH TRANSDERMA (09:49)
[2023-05-15] MEDS: Cyclobenzaprine HCl 10 MG TABLET PO (09:49)
== END 2023-05-15 09:53 | disposition home or self-care (01) ==
PROVIDERS: Emergency Provider Emergency Medicine
DX: M54.50 Low back pain, unspecified (principal); G89.29 Other chronic pain
CPT/HCPCS: 99283

== ENCOUNTER → 2023-06-11 13:57 | Outpatient (BNVA) | payer OTHER, SELFPAY | PROVIDERS: Visit Provider Anesthesiology | DX: M54.51 Vertebrogenic low back pain (principal); M43.16 Spondylolisthesis, lumbar region | CPT/HCPCS: 99202 ==

== ENCOUNTER 2023-06-11 14:04 | Outpatient (AMB) | payer OTHER, SELFPAY ==
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
[2023-06-11 14:12] VITALS: BP 140/82; PULSE 94; RESP 16; O2SAT 96; BMI 26.9
== END 2023-06-11 14:53 | disposition home or self-care (01) ==
LOC: HO.PMC 14:04
PROVIDERS: Visit Provider Anesthesiology
DX: M54.51 Vertebrogenic low back pain (principal); M43.16 Spondylolisthesis, lumbar region; M43.06 Spondylolysis, lumbar region
CPT/HCPCS: 99203

== ENCOUNTER 2023-07-18 09:56 | Outpatient (REF) | payer OTHER, SELFPAY ==
[2023-07-18 12:51] LABS: Alanine Aminotransferase 21 U/L (0-40); Albumin Level 4.5 g/dL (3.5-5.0); Alkaline Phosphatase 52 U/L (39-117); Anion Gap 9 (12-20); Aspartate Amino Transferase 21 U/L (5-37); Bilirubin Total 1.2 mg/dL (0.0-1.0); Blood Urea Nitrogen 13 mg/dL (9-16); Calcium 9.4 mg/dL (8.4-10.2); Carbon Dioxide 30 mmol/L (22-29); Chloride 106 mmol/L (96-108); Cholesterol 135 mg/dL (<200); Estimated Glomerular Filt Rate > 60; Glucose Random 94 mg/dL (60-115); HDL Cholesterol 54 mg/dL (>40); LDL Cholesterol Calculated 72 mg/dL (<100); Sodium 141 mmol/L (135-145); Total Protein 7.1 g/dL (6.5-8.0); Triglycerides 47 mg/dL (<150)
[2023-07-18 15:26] LABS: Estimated Average Glucose 97 mg/dL
== END 2023-07-18 09:57 | disposition home or self-care (01) ==
LOC: HO.HHCL 09:56
PROVIDERS: Visit Provider General Practice
DX: Z13.89 Encounter for screening for other disorder (principal); Z83.3 Family history of diabetes mellitus
CPT/HCPCS: 36415; 80053; 80061; 83036

== ENCOUNTER 2023-08-07 17:06 | Outpatient (REF) | payer OTHER, SELFPAY ==
--- NOTE | ~2023-08-07 | MR_ITS ---
EXAMINATION: MR LUMBAR SPINE WITHOUT CONTRAST CLINICAL INFORMATION: 28-year-old with spondylolisthesis, lumbar region. Persistent low back pain. COMPARISON: None available. TECHNIQUE: MRI of the lumbar spine was obtained using routine sequences without contrast. FINDINGS: Coronal Alignment: Trace thoracolumbar levocurvature, slightly convex to the left at T12-L1. Sagittal Alignment: Normal. Lumbosacral Junction: Normal. There are 5 [id number] lumbar-type vertebral bodies. Vertebral Bodies: Well maintained with normal height. No compression fractures, anomalies or other deformities. Disc Spaces and Endplates: The intervertebral disc space heights and signal are well-maintained. There is minor anterior marginal endplate spurring along the superior endplate of T12. Otherwise no significant spondylosis. Endplates appear intact. Spinal Canal: No abnormal developmental findings. Bone Marrow: Focal type I and type II marrow signal change is seen along the anterosuperior corner of T12. Otherwise bone marrow signal intensity appears grossly within normal limits. Conus Medullaris: Terminates at L1-L2. Morphology and signal is normal. Intradural Nerve Roots: Within normal limits. L5-S1: Mild facet joint arthropathy noted on the right with minor posterolateral disc osteophyte complex with similar findings to a lesser degree on the left. There is [id number] bilateral neural foraminal narrowing with mild encroachment on the exiting L5 nerve roots bilaterally. No significant spinal canal stenosis. L4-L5: Trace annular bulging noted with minimal indentation of the ventral thecal sac. Mild facet hypertrophic changes noted bilaterally without significant canal or neural foraminal stenosis. L3-L4 through L1-L2: No significant disc bulge or herniation. No significant facet joint arthrosis, canal or neural foraminal stenosis. Paravertebral and Included Extraspinal Soft Tissues: The visualized paravertebral soft tissues and included retroperitoneal structures are unremarkable within the limitations of the exam. MR/MR lumbar spine wo con IMPRESSION: 1. Trace thoracolumbar levocurvature, slightly convex to the left at T12-L1. No spondylolisthesis. 2. Mild posterolateral disc osteophyte complex at L5-S1 with [id number] facet joint arthrosis, right more than left, with [id number] bilateral neural foraminal narrowing, with mild encroachment on the exiting L5 nerve roots bilaterally. 3. Trace annular bulging at L4-L5 and mild facet arthropathy without spinal canal or neuroforaminal stenosis.
== END 2023-08-07 17:07 | disposition home or self-care (01) ==
LOC: HO.MRI 17:06
PROVIDERS: PCP General Practice; Visit Provider Anesthesiology
DX: M43.16 Spondylolisthesis, lumbar region (principal); M54.51 Vertebrogenic low back pain
CPT/HCPCS: 72148

== ENCOUNTER 2025-02-26 17:16 | Emergency (ER) | payer SELFPAY ==
[2025-02-26 17:28] VITALS: BP 142/65; PULSE 96; RESP 20; TEMP 37; O2SAT 96; BMI 24.6
--- NOTE | 2025-02-26 17:31 | ED_ITS ---
HPI - Dental/Oral General Chief complaint: Dental/Oral Stated complaint: Dental Pain Time Seen by Provider: 02/26/25 20:57 History of Present Illness ED Provider: Jeanette LI Narrative: The patient is a 29-year-old male who has been having problems with dental pain on his right jaw for about 2 or 3 days with the associated significant soft tissue swelling. He says that several years ago he had a root canal of a tooth in his area and he has had recurrent problems ever since but it has never gotten this swollen before. No fever, sweats, chills. No difficulty swallowing. Related Data Previous Rx's ?Medication ?Instructions ?Recorded acetaminophen 500 mg tablet 500 mg PO Q6H PRN fever or pain 05/15/23 (Tylenol Extra Strength) #14 tabs acetaminophen 500 mg capsule 1,000 mg (2 x 500 mg) PO Q8H PRN 02/26/25 fever or pain #14 caps clindamycin HCl 300 mg capsule 300 mg PO Q6H 7 days #2 8 caps 02/26/25 (Cleocin HCl) Allergies Allergy/AdvReac Type Severity Reaction Status Date / Time ibuprofen (From MOTRIN) Allergy Mild ANGIOEDEMA Verified 02/26/25 17:31 Penicillins (PENICILLINS) Allergy Unknown FEVER/RASH Verified 02/26/25 17:31 aspirin Allergy Swelling Verified 02/26/25 17:31 Review of Systems 2 Review of Systems: Yes all other systems are reviewed and are negative [facility] Social History Social History Alcohol intake: unknown Substance Use Type: Marijuana Advance Directives: No Advance Directives Information Provided: No Do you have a plan to hurt others: No Plan Physical Exam 2 Vital Signs: Vital Signs: Last Vital Signs Temp 98.6 F 02/26/25 21:34 Pulse 96 02/26/25 21:34 Resp 20 02/26/25 21:34 BP 142/65 H 02/26/25 21:34 Pulse Ox 96 02/26/25 21:34 O2 Del Method Room Air 02/26/25 21:34 BMI result Body Mass Index 24.6 Const: Other: The patient is a somewhat unkempt 29-year-old male who was awake and alert. He does not look in acute distress but he has some obvious right-sided facial swelling overlying the right jaw. Orientation/consciousness: patient oriented x3 HEENT: Other: There is soft tissue swelling to the right side of the face overlying the right jaw. He has no trismus. He has severe decay of the molars of the right jaw. He has a very obvious and tense looking soft tissue swelling in the region of the gingiva at the base of the severely decayed molars. This was tender and fluctuant. Eyes: General: appearance normal, both eyes and all related structures Neck: Neck: Yes full ROM and Yes no lymphadenopathy Resp: Effort & Inspection: normal respiratory effort Auscultation: clear to auscultation bilaterally Cardio: Rate: regular rate Rhythm: regular rhythm Heart sounds: S1 normal heart sound present and S2 normal heart sound present Skin: Other: The skin of the face on the right side is swollen over the right jaw. No associated erythema. Neuro: General: patient oriented x3, gait normal, tone normal, moves all extremities, no focal motor deficits and CN's II-XI intact bilaterally Extrem: Other: There is no calf swelling or tenderness. No asymmetry. No peripheral edema. Course Course Course Narrative: This is a Rapid Medical Examination (RME) performed by Lisa Alston PA-C in triage. Full HPI, ROS, assessment and treatment plan per primary provider in the Main ED. Hx: 29 yo M here for eval of right lower dental pain with facial swelling x2 days. admits to poor dentition and cavities. does not currently follow w/ dentist. reports subjective fevers at home. no difficulty swallowing. no voice changes. PE/vitals: noted swelling to right cheek, poor dentition/ dental caries to right lower teeth with localized periapical swelling extending to buccal mucosa. no anterior neck swelling. airway patent. Plan: labs - will need imaging Medications Administered Discontinued Medications Generic Name Dose Route Start Last Admin Trade Name Freq PRN Reason Stop Dose Admin Acetaminophen 975 mg 02/26/25 21:16 02/26/25 21:24 Acetaminophen 325 Mg Tablet PO 02/26/25 21:17 975 mg ONCE ONE Administration Clindamycin HCl 600 mg 02/26/25 21:15 02/26/25 21:25 Clindamycin Hcl 300 Mg Capsule PO 02/26/25 21:16 600 mg ONCE ONE Administration Lidocaine/Epinephrine 10 ml 02/26/25 21:02 02/26/25 21:09 Lidocaine Hcl 1%/Epi 1:100,000 10 Ml Vial INFILTRATI 02/26/25 21:03 10 ml ONCE ONE Administration Medical Decision Making Medical Decision Making [facility] Narrative: The patient is a 29-year-old male with a history of poor dentition who has a significant dental abscess adjacent to tooth number 30 which is severely decayed (as are # 31 and # 32). The abscess was very apparent at the floor of the vestibule of the mouth. It was obviously fluctuant and ready for drainage. I applied some topical anesthetic gel and then administered lidocaine with epinephrine. Following anesthesia it made an incision with a #11 blade and released a large amount of pus. The patient felt considerably better. The patient is penicillin allergic. He was started on clindamycin. He will be discharged with a prescription for clindamycin and acetaminophen and should follow up with the dental office at the [facility] on Friday. Lab Data 02/26/25 18:23 02/26/25 18:23 Labs: Lab Results 02/26/25 Range/Units 18:23 WBC 13.3 H (4.8-10.8) X10*3/uL RBC 5.51 (4.60-5.80) X10*6/uL Hgb 16.8 (14.0-18.0) g/dl Hct 48.5 (42.0-52.0) % MCV 88.0 (80.0-98.0) fL MCH 30.5 (27.0-33.0) pg MCHC 34.6 (31.0-36.0) g/dl RDW 12.8 (11.0-16.0) % Plt Count 297 D (160-400) X10*3/uL MPV 10.4 (9.4-12.4) fL Immature Gran % (Auto) 0.5 H (0.0-0.4) % Neut % (Auto) 75.1 H (45-73) % Lymph % (Auto) 15.2 L (20-40) % Becker % (Auto) 7.9 (2-11) % Eos % (Auto) 0.8 (0-4) % Baso % (Auto) 0.5 (0-2) % Lymph # (Auto) 2.0 (1.2-4.9) X10*3/uL Becker # (Auto) 1.1 (0.1-1.2) X10*3/uL Eos # (Auto) 0.1 (0.0-0.4) X10*3/uL Baso # (Auto) 0.1 (0.0-0.2) X10*3/uL Abs Immat Gran (auto) 0.07 H (0.00-0.03) X10*3/uL Absolute Neuts (auto) 10.0 H (2.0-8.3) x10*3/uL Absolute Nucleated RBC 0.000 (0.0-0.012) X10*3/uL Nucleated RBC % (auto) 0.0 (0.0-0.2) /100WBC ESR 14 (0-15) MM/HR Sodium 139 (135-145) mmol/L Potassium 3.8 (3.3-5.1) mmol/L Chloride 101 (96-108) mmol/L Carbon Dioxide 26 (22-29) mmol/L Anion Gap 16 (12-20) BUN 14 (9-16) mg/dL Creatinine 0.96 (0.5-1.4) mg/dL Estim Creat Clear Calc 127.1 Estimated GFR > 60 Random Glucose 87 (60-115) mg/dL Lactic Acid 0.8 (0.5-2.0) mmol/L Calcium 9.9 (8.4-10.2) mg/dL Total Bilirubin 1.2 H (0.0-1.0) mg/dL AST 22 (5-37) U/L ALT 19 (0-40) U/L Alkaline Phosphatase 65 (39-117) U/L C-Reactive Protein 10.16 H (< or = 0.50) mg/dL Total Protein 8.2 H (6.5-8.0) g/dL Albumin 5.1 H (3.5-5.0) g/dL Procedures Abscess I/D Site: oral (Dental abscess at floor of right vestibule near tooth #30) Side (if applicable): right Local Anesthetic: lidocaine 1% and with epi Amount of anesthesia used (mL): 3 Technique: incised with blade Amount of fluid expressed (mL): 5 (Flow seemed copious) Discharge Plan Discharge Clinical Impression: Dental abscess Patient Disposition: Home, Self-Care Instructions: Dental Abscess (ED) Additional Instructions: There was an abscess next to your teeth on your right jaw that was opened so it could drain. Please rinse your mouth with warm water several times a day to help keep the abscess draining. If you can add some salt the water that can be helpful also. Warm salt water rinses would be very good. I have sent a prescription for the antibiotic clindamycin to your pharmacy. Please pickle water pump operator this prescription in the morning and take it 4 times a day, approximately every 6 hours. You may use acetaminophen as needed for pain. Please go to the dental clinic at the [facility] on Friday. Return to the emergency room if significantly worse. Prescriptions: New clindamycin HCl [Cleocin HCl] 300 mg capsule 300 mg PO Q6H 7 Days Qty: 28 0RF acetaminophen 500 mg capsule 1,000 mg PO Q8H PRN (Reason: fever or pain) Qty: 14 0RF No Action acetaminophen [Tylenol Extra Strength] 500 mg tablet 500 mg PO Q6H PRN (Reason: fever or pain) Qty: 14 0RF Referrals: [facility] [Provider Group] Interventions: ED Discharge Assessment Last Done: 02/26/25 21:34 Discharge Date/Time: 02/26/25 21:35 Print Language: Maltese
[2025-02-26 18:30] LABS: MANUAL DIFF FLAG NO
[2025-02-26 18:31] LABS: Hematocrit 48.5 % (42.0-52.0); Hemoglobin 16.8 g/dl (14.0-18.0); Imm Gran Abs Auto 0.07 X10*3/uL (0.00-0.03); Imm Gran Pct Auto 0.5 % (0.0-0.4); Lymphocytes Absolute Auto 2.0 X10*3/uL (1.2-4.9); Mean Corpuscular HGB Conc 34.6 g/dl (31.0-36.0); Mean Corpuscular Hemoglobin 30.5 pg (27.0-33.0); Mean Corpuscular Volume 88.0 fL (80.0-98.0); NRBC Abs Auto 0.000 X10*3/uL (0.0-0.012); NRBC Pct Auto 0.0 /100WBC (0.0-0.2); Platelet Count 297 X10*3/uL (160-400); Red Blood Count 5.51 X10*6/uL (4.60-5.80); White Blood Count 13.3 X10*3/uL (4.8-10.8)
[2025-02-26 18:52] LABS: Alanine Aminotransferase 19 U/L (0-40); Albumin Level 5.1 g/dL (3.5-5.0); Alkaline Phosphatase 65 U/L (39-117); Anion Gap 16 (12-20); Aspartate Amino Transferase 22 U/L (5-37); Blood Urea Nitrogen 14 mg/dL (9-16); Calcium 9.9 mg/dL (8.4-10.2); Carbon Dioxide 26 mmol/L (22-29); Chloride 101 mmol/L (96-108); Creatinine Clr Calc Pharmacy 127.1; Estimated Glomerular Filt Rate > 60; Potassium 3.8 mmol/L (3.3-5.1); Sodium 139 mmol/L (135-145); Total Protein 8.2 g/dL (6.5-8.0)
[2025-02-26 19:27] LABS: Erythrocyte Sedimentation Rate 14 MM/HR (0-15)
--- OUTSIDE RECORDS SUMMARY | 2025-02-26 20:59 | XMS_ITS | Encounter Summary ---
Author Organization [facility] Address [address] [place] [phone] Phone Care Team Providers Care Certified Meeting Professional Name Role Phone Mirella Patino MD Primary Care Provider Unavailabl e Encounter Details Date Type Department Care Team (Late st Contact Info) Description 06/29/2010 Documentation [facility] [address] [place], [place] [phone] Family Medicine, Physician [address] [place] [address] Social History Tobacco Use Types Packs/Day Years Used Date Smoking Tobacco: Never Assessed Sex and Gender Information Value Date Recorded Sex Assigned at Not on file Legal Sex Male 4:51 PM EDT Gender Identity Not on file Sexual Orientation Not on file documented as of this encounter Plan of Treatment Not on file documented as of this encounter Visit Diagnoses Not on filedocumented in this encounter Care Teams Certified Meeting Professional Relationship Specialty Start Date End Date Mirella Patino MD PCP - General 11/08/16 documented as of this encounter
--- OUTSIDE RECORDS SUMMARY | 2025-02-26 20:59 | XMS_ITS | Encounter Summary ---
Author Organization [facility] Address [address] [place] [phone] Phone Care Team Providers Care Flexographic Printing Machinist Name Role Phone Mirella Patino MD Primary Care Provider Unavailabl e Encounter Details Date Type Department Care Team (Late st Contact Info) Description 06/25/2010 Documentation [facility] [address] [place], [place] [phone] Family Medicine, Physician [address] [place] [address] Social History Tobacco Use Types Packs/Day Years [...] on filedocumented in this encounter Care Teams Flexographic Printing Machinist Relationship Specialty Start Date End Date Mirella Patino MD PCP - General 11/08/16 documented as of this encounter
--- OUTSIDE RECORDS SUMMARY | 2025-02-26 20:59 | XMS_ITS | Encounter Summary ---
Author Organization [facility] Address [address] [place] [phone] Phone Care Team Providers Care Ct Tech Name Role Phone Mirella Patino MD Primary Care Provider Unavailabl e Encounter Details Date Type Department Care Team (Late st Contact Info) Description 05/15/2010 Documentation [facility] [address] [place], [place] [phone] Family Medicine, Physician [address] [place] [address] Social History Tobacco Use Types Packs/Day Years [...] on filedocumented in this encounter Care Teams Ct Tech Relationship Specialty Start Date End Date Mirella Patino MD PCP - General 11/08/16 documented as of this encounter
--- OUTSIDE RECORDS SUMMARY | 2025-02-26 21:00 | XMS_ITS | Encounter Summary ---
Author Organization [facility] Address [address] [place] [address] Phone Care Team Providers Care Hinging Machine Operator Name Role Phone Mirella Patino MD Primary Care Provider Unavailabl e Encounter Details Date Type Department Care Team (Late st Contact Info) Description 06/25/2010 Documentation [facility] [address] [place], [place] [phone] Family Medicine, Physician [address] [place] [address] Social History Tobacco Use Types Packs/Day Years [...] on filedocumented in this encounter Care Teams Hinging Machine Operator Relationship Specialty Start Date End Date Mirella Patino MD PCP - General 11/08/16 documented as of this encounter
--- OUTSIDE RECORDS SUMMARY | 2025-02-26 21:00 | XMS_ITS | Encounter Summary ---
Author Organization [facility] Address [address] [place] [phone] Phone Care Team Providers Care Community Engagement Specialist Name Role Phone Mirella Patino MD Primary Care Provider Unavailabl e Encounter Details Date Type Department Care Team (Late st Contact Info) Description 07/23/2013 Documentation [facility] [address] [place], [place] [phone] Family Medicine, Physician [address] [place] [address] Social History Tobacco Use Types Packs/Day Years [...] on filedocumented in this encounter Care Teams Community Engagement Specialist Relationship Specialty Start Date End Date Mirella Patino MD PCP - General 11/08/16 documented as of this encounter
--- OUTSIDE RECORDS SUMMARY | 2025-02-26 21:00 | XMS_ITS | Encounter Summary ---
Author Organization [facility] Address [address] [place] [phone] Phone Care Team Providers Care Assembly And Packing Supervisor Name Role Phone Mirella Patino MD Primary Care Provider Unavailabl e Encounter Details Date Type Department Care Team (Late st Contact Info) Description 02/03/2013 Documentation [facility] [address] [place] [address] Family Medicine, Physician [address] [place] [address] Social History Tobacco Use Types Packs/Day Years [...] on filedocumented in this encounter Care Teams Assembly And Packing Supervisor Relationship Specialty Start Date End Date Mirella Patino MD PCP - General 11/08/16 documented as of this encounter
--- OUTSIDE RECORDS SUMMARY | 2025-02-26 21:00 | XMS_ITS | Encounter Summary ---
Author Organization [facility] Address [address] [place] [phone] Phone Care Team Providers Care Custom Clothier Name Role Phone Mirella Patino MD Primary Care Provider Unavailabl e Encounter Details Date Type Department Care Team (Late st Contact Info) Description 08/22/2009 Documentation [facility] [address] [place], [place] [phone] Family Medicine, Physician [address] [place] [address] Social History Tobacco Use Types Packs/Day Years [...] on filedocumented in this encounter Care Teams Custom Clothier Relationship Specialty Start Date End Date Mirella Patino MD PCP - General 11/08/16 documented as of this encounter
--- OUTSIDE RECORDS SUMMARY | 2025-02-26 21:00 | XMS_ITS | Clinical Summary ---
Author Organization [facility] Address [address] [place] [address] Phone Care Team Providers Care Hand Router Operator Name Role Phone Mirella Patino MD Primary Care Provider Unavailabl e Immunizations Immunization Administration Dates Next Due DTP 01/29/1996, 5,1994,08/02 DTaP 5 08/02/1999 H1N1 02/03/2009 Hep B, ped/adol 1994,1994,1994 Hib (PRP-T) 01/29/1996, 5,1994,08/02 IPV 08/02/1999, 5,1994,08/02 Influenza Split 03/13/2012,11/29/2010 Influenza, injectable, quadr ivalent, preservative free 01/26/2013 Influenza, injectable, trivalent 02/12/2008,01/30 MMR 08/02/1999,08/01/1995 Meningococcal Conj (Menactra) MCV4P 04/13/2007 Tdap 04/13/2007 Varicella 04/13/2007,08/04/1996 Family History Relation Name Status Comments Brother Alive Brother: Alive and well Maternal Grandmother Materna l grandmother: Diabetes mellitus Mother Alive Mother: Diabete s mellitus, Obesity, Autism, Alive and well Other No family histo ry of Sudden /[place] under age 55, No family history of Developmental dislocation of hip, No family history of Autism, No family history of Asthma, No family history of Migraines, No family history of Elevated cholesterol, No family history of Strabismus/amblyopia, No family history of Deafness, No family history of Seizure disorder, No family history of Obesity Sister Alive Sister: Alive a nd well Social History Tobacco Use Types Packs/Day Years Used Date Smoking Tobacco: Never Comments:Never smoker Sex and Gender Information Value Date Recorded Sex Assigned at Not on file Legal Sex Male 4:51 PM EDT Gender Identity Not on file Sexual Orientation Not on file Last Filed Vital Signs Vital Sign Reading Time Taken Comments Blood Pressure 100/64 04/05/2013 12:00 AM EST Pulse 63 06/09/2012 12:00 AM EDT Temperature 37.9 C (100.2 F) 12/22/2012 12:00 AM EDT Respiratory Rate - - Oxygen Saturation - - Inhaled Oxygen Concentration - - Weight 90.7 kg (200 lb) 04/05/2013 12:00 AM EST Height 183.2 cm (6' 0.13 ) 04/05/2013 12:[address] Body Mass Index 27.03 04/05/2013 12:00 AM EST Plan of Treatment Health Maintenance Due Date Last Done Comments DTaP,Tdap,and Td Vaccines (7 - Td or Tdap) 04/13/2017 04/13/2007, 08/02/1999, 01/29/1996, Additional history exists HPV Vaccines (1 - 3-dose SCDM series) 2021 Influenza Vaccines (#1) 2024 01/27/20 13, 03/13/2012, 11/29/2010, Additional history exists COVID-19 Vaccine (2024- season) 2024 Hepatitis B Vaccines Completed 1994, 1994, 1994 HIB Vaccines Completed 01/29/1996, 01/29, 1994, Additional history exists IPV Vaccines Completed 08/02/1999, 01/29, 1994, Additional history exists MMR Vaccines Completed 08/02/1999, 08/01/1995 Meningococcal Vaccine Aged Out 04/13/2007 No simona jenny eligible based on patient's age to complete this topic Varicella Vaccines Completed 04/13/2007, 08/04/1996 Hepatitis A Vaccines Aged Out No long er eligible based on patient's age to complete this topic Men B Vaccine Aged Out No longer elig ible based on patient's age to complete this topic Pneumococcal Vaccine Aged Out No long er eligible based on patient's age to complete this topic Care Teams Hand Router Operator Relationship Specialty Start Date End Date Mirella Patino MD PCP - General 11/08/16
--- OUTSIDE RECORDS SUMMARY | 2025-02-26 21:00 | XMS_ITS | Encounter Summary ---
Author Organization [facility] Address [address] [place] [phone] Phone Care Team Providers Care Piledriver Carpenter Name Role Phone Mirella Patino MD Primary Care Provider Unavailabl e Encounter Details Date Type Department Care Team (Late st Contact Info) Description 11/14/2016 Conversion Encounter [facility] - [address] [address] Social History Tobacco Use Types Packs/Day Years [...] on filedocumented in this encounter Care Teams Piledriver Carpenter Relationship Specialty Start Date End Date Mirella Patino MD PCP - General 11/08/16 documented as of this encounter
[2025-02-26] MEDS: Lidocaine HCl 1%/Epi 1:100,000 10 ML VIAL INFILTRATI (21:09)
[2025-02-26 21:34] VITALS: BP 142/65; PULSE 96; RESP 20; TEMP 37; O2SAT 96
== END 2025-02-26 21:35 | disposition home or self-care (01) ==
PROVIDERS: Physician Assistant Medical; Emergency Provider Emergency Medicine
DX: K04.7 Periapical abscess without sinus (principal); K08.89 Other specified disorders of teeth and supporting structures
CPT/HCPCS: 36415; 80053; 83605; 85025; 85652; 86140; 87040; 96374; 99283; J2004